=== PATIENT | male | born 1955 | race Caucasian/White ===

== ENCOUNTER 2017-05-05 16:36 | Observation (INO) | payer OTHER ==
[~2017-05-05] VITALS: Ht 182.9 cm; Wt 89.4 kg
[2017-05-05 17:36] LABS: BASOPHIL % 0.2 % (0-2); PLATELET COUNT 188 x10^3mcL (130-400); RED CELL DISTRIBUTION WIDTH 12.9 % (11.5-14.5)
[2017-05-05 17:45] LABS: CARBON DIOXIDE 26.5 mmol/L (21-32); CHLORIDE SERUM 102 mmol/L (98-107); CREATININE SERUM 1.1 mg/dL (0.7-1.3); GFR1 > 60 mL/min; GLUCOSE SERUM 102 mg/dL (74-106); POTASSIUM SERUM 3.8 mmol/L (3.5-5.1); SODIUM SERUM 140 mmol/L (136-145)
[2017-05-05 17:50] LABS: ALBUMIN 4.2 g/dL (3.4-5.0); ALKALINE PHOSPHATASE 95 U/L (46-116); ALT/SGPT 30 U/L (16-63); AST/SGOT 26 U/L (15-37); BILIRUBIN TOTAL 0.9 mg/dL (0.20-1.00); CHOLESTEROL 175 mg/dL (<200); HDL CHOLESTEROL 47 mg/dL (40-60); TOTAL PROTEIN, SERUM 8.1 g/dL (6.4-8.2)
[2017-05-05 19:11] VITALS: BP 103/64
[2017-05-05 19:11] LABS: CHOLESTEROL/HDL RATIO 3.8; MAGNESIUM 1.8 mg/dL (1.8-2.4); PHOSPHOROUS 3.1 mg/dL (2.5-4.9)
[2017-05-05 19:16] LABS: T3 TOTAL 1.5 ng/mL
[2017-05-05 19:20] LABS: FREE T4 1.43 ng/dL (0.76-1.46)
[2017-05-05 19:22] LABS: FREE THYROXINE INDEX 4.1 ug/dL (1.4-4.5)
[2017-05-05 21:05] VITALS: BP 112/68
[2017-05-05 23:50] LABS: microscopic required? YES; urine erythrocyte 1+ (NEGATIVE)
[2017-05-06 00:05] LABS: AMPHETAMINE QUAL UR NONE DETECTED (NEG <=1000)
[2017-05-06 05:25] VITALS: BP 120/71
[2017-05-06 06:44] LABS: PLATELET COUNT 202 x10^3mcL (130-400); RED CELL DISTRIBUTION WIDTH 13.1 % (11.5-14.5)
[2017-05-06 06:51] LABS: BASOPHIL % 0 % (0-2)
[2017-05-06 07:01] LABS: CALCIUM 8.7 mg/dL (8.5-10.1); CARBON DIOXIDE 29.5 mmol/L (21-32); CHLORIDE SERUM 102 mmol/L (98-107); CREATININE SERUM 1.2 mg/dL (0.7-1.3); GFR1 > 60 mL/min; GLUCOSE SERUM 139 mg/dL (74-106); MAGNESIUM 1.7 mg/dL (1.8-2.4); POTASSIUM SERUM 4.4 mmol/L (3.5-5.1); SODIUM SERUM 141 mmol/L (136-145)
[2017-05-06 09:47] VITALS: BP 122/78
[2017-05-06 13:38] VITALS: BP 139/78
[2017-05-06 17:22] VITALS: BP 117/78
[2017-05-06 21:45] VITALS: BP 127/78
[2017-05-07 06:16] LABS: BASOPHIL % 0.1 % (0-2); PLATELET COUNT 185 x10^3mcL (130-400); RED CELL DISTRIBUTION WIDTH 13.1 % (11.5-14.5)
[2017-05-07 06:22] VITALS: BP 150/87
[2017-05-07 06:42] LABS: CALCIUM 8.2 mg/dL (8.5-10.1); CARBON DIOXIDE 27.7 mmol/L (21-32); CREATININE SERUM 1.3 mg/dL (0.7-1.3); MAGNESIUM 2.3 mg/dL (1.8-2.4); PHOSPHOROUS 3.1 mg/dL (2.5-4.9)
[2017-05-07 10:02] VITALS: BP 140/85
[2017-05-07] MEDS ORDERED: LEVAQUIN750 MG PO (15:39)
[2017-05-07] MEDS ORDERED: FLA500 PO (15:43)
[2017-05-07] MEDS ORDERED: LAC PO (15:44)
[2017-05-07] MEDS ORDERED: MEDROL DOSEPAK4 MG GT (15:49)
[2017-05-07] MEDS ORDERED: CYCLOBENZAPRINE5 MG PO (15:51)
[2017-05-07] MEDS ORDERED: GOOD SENSE OMEP20 MG PO (16:05)
[2017-05-07] MEDS ORDERED: COL100 PO (16:05)
[2017-05-07 16:29] VITALS: BP 134/87
== END 2017-05-07 17:10 | disposition home or self-care (01) | DRG 191 ==
LOC: ED 16:36 → MU 18:27 → DU 18:27 → MU 19:15
PROVIDERS: Emergency Medicine; Family Medicine; Family Medicine Sports Medicine
DX: J44.1 Chronic obstructive pulmonary disease with (acute) exacerbation (principal); I42.2 Other hypertrophic cardiomyopathy; J98.11 Atelectasis; K59.00 Constipation, unspecified; M51.26 Other intervertebral disc displacement, lumbar region; G89.29 Other chronic pain; E05.90 Thyrotoxicosis, unspecified without thyrotoxic crisis or storm; E78.5 Hyperlipidemia, unspecified; F12.10 Cannabis abuse, uncomplicated; Z68.26 Body mass index [BMI] 26.0-26.9, adult; Z98.1 Arthrodesis status; Z87.891 Personal history of nicotine dependence; Z91.14 Patient's other noncompliance with medication regimen
CPT/HCPCS: 83880; 84439; 87804; 90658; 94150; G0378; J1644; J1885; J1956; J2270; J2405; J2920; J2930; J3475; J3490; J7030; J7613; J7620; J7633; Q0092; Q9966